=== PATIENT | female | born 1945 | race Caucasian/White ===

== ENCOUNTER → 2016-12-30 | Outpatient (CLI) | payer OTHER, MEDICARE | LOC: FIMAGING 11:09 | PROVIDERS: ATTEND Family Medicine | DX: Z12.31 Encounter for screening mammogram for malignant neoplasm of breast (principal) | CPT/HCPCS: G0202 ==

== ENCOUNTER → 2017-11-23 | Outpatient (CLI) | payer OTHER, MEDICARE | LOC: GIMAGING 15:59 | PROVIDERS: ATTEND Family Medicine | DX: M25.511 Pain in right shoulder (principal) | CPT/HCPCS: 73030-PO ==

== ENCOUNTER → 2018-01-12 | Outpatient (CLI) | payer OTHER, MEDICARE | LOC: FIMAGING 11:14 | PROVIDERS: ATTEND Family Medicine | DX: Z12.31 Encounter for screening mammogram for malignant neoplasm of breast (principal) ==